=== PATIENT | female | born 1975 | race Hispanic/Latino ===

== ENCOUNTER 2022-05-29 23:21 | Inpatient (IN) | payer OTHER ==
[~2022-05-29] VITALS: Ht 160 cm; Wt 86.2 kg
[2022-05-30] VITALS (8 sets, daily range): BP systolic 124–133; BP diastolic 61–78
[2022-05-30] MEDS ORDERED: ONDANSETRON HCL INJ 2MG/ML 2ML 2 MG/ML VIAL IV STA (00:25)
[2022-05-30] MEDS ORDERED: KETOROLAC TROMETHAMINE 30 MG/ML VIAL IV STA (00:25)
[2022-05-30 00:37] LABS: BASOPHILS % 0.2 % (0.0-1.0); EOSINOPHILS % 0.2 % (0.0-6.0); HEMATOCRIT 38.6 % (34.2-44.1); HEMOGLOBIN 11.3 g/dL (12.0-16.0); LYMPHOCYTES # (AUTO) 0.3 (1.0-3.2); LYMPHOCYTES % 2.6 % (18.0-39.1); MEAN CORPUSCULAR HEMOGLOBIN 26.5 pg (28-32); MEAN CORPUSCULAR HGB CONC 29.3 g/dL (31-35); MEAN CORPUSCULAR VOLUME 90.6 fL (81-99); MONOCYTES # (AUTO) 0.1 (0.2-0.8); MONOCYTES % 0.6 % (4.4-11.3); NEUTROPHILS # (AUTO) 11.1 (2.1-6.9); NEUTROPHILS % 96.1 % (38.7-80.0); PLATELET COUNT 186 x10e3/uL (140-360); RED BLOOD COUNT 4.26 x10e6/uL (3.6-5.1)
[2022-05-30] MEDS ORDERED: ONDANSETRON HCL INJ 2MG/ML 2ML 2 MG/ML VIAL ONE ×3 (00:42→13:08)
[2022-05-30] MEDS ORDERED: KETOROLAC TROMETHAMINE 30 MG/ML VIAL ONE (00:42)
[2022-05-30 00:55] LABS: ALBUMIN 3.9 g/dL (3.5-5.0); ALBUMIN/GLOBULIN RATIO 1.1 (0.8-2.0); ANION GAP 13.5 mmol/L (8-16); CALCIUM 9.1 mg/dL (8.4-10.2); CREATININE, SERUM 1.1 mg/dL (0.57-1.11); POTASSIUM 3.5 mmol/L (3.5-5.1)
[2022-05-30 01:06] LABS: CLARITY,URINE CLOUDY (CLEAR); COLOR,URINE STRAW (YELLOW)
[2022-05-30 01:07] LABS: BACTERIA,URINE MANY /HPF; EPITHELIAL CELLS,URINE FEW /LPF; KETONES,URINE NEGATIVE (NEGATIVE); LEUKOCYTE ESTERASE ,URINE TRACE (NEGATIVE); NITRITE,URINE NEGATIVE (NEGATIVE); PROTEIN,URINE DIPSTICK NEGATIVE (NEGATIVE); RBC,URINE >50 /HPF (0-5); URINE UROBILINOGEN 0.2 mg/dL (0.2 - 1)
[2022-05-30] MEDS ORDERED: HYDROMORPHONE 1MG/1ML INJ IV STA (01:38)
[2022-05-30] MEDS ORDERED: ONDANSETRON HCL INJ 2MG/ML 2ML 2 MG/ML VIAL IV PRN (02:15)
[2022-05-30] MEDS ORDERED: HYDROMORPHONE 1MG/1ML INJ IV PRN (02:15)
[2022-05-30] MEDS: MEROPENEM 1 GM in SODIUM CHLORIDE 0.9% 100 ML IV SCH ×2 (02:20→14:49)
[2022-05-30] MEDS ORDERED: AMLODIPINE BES2.5 MG PO (03:53)
[2022-05-30] MEDS ORDERED: INFLUENZA VIRUS VAC SPLIT INJ 0.5 ML SYR IM SCH (04:11)
[2022-05-30] MEDS ORDERED: IOPAMIDOL 370 MG/ML 100 ML INFUS..BTL INJ ONE (09:45)
[2022-05-30] MEDS ORDERED: ACETAMINOPHEN 1000 MG/100 ML IV PRN (09:45)
[2022-05-30] MEDS ORDERED: LIDOCAINE HCL 2% LOCAL INJ 5 ML SDV VIAL INJ ONE (12:33)
[2022-05-30] MEDS ORDERED: DEXAMETHASONE SOD PHOS INJ 4 MG/ML SDV ONE (12:33)
[2022-05-30] MEDS ORDERED: GLYCOPYRROLATE INJ 0.2 MG/ML VIAL ONE (12:33)
[2022-05-30] MEDS ORDERED: PROPOFOL IV EMULSION 10 MG/ML 20 ML VIAL ONE ×2 (12:33→13:08)
[2022-05-30] MEDS ORDERED: POVIDONE IODINE 0.05% 0.05 % ML PO ONE ×2 (12:33→13:08)
[2022-05-30] MEDS ORDERED: MIDAZOLAM HCL 2 MG/2 ML VIAL ONE ×2 (12:42→13:30)
[2022-05-30] MEDS ORDERED: FENTANYL CITRATE/PF 100MCG/2 ML INJ ONE ×2 (12:42→13:30)
[2022-05-30] MEDS ORDERED: SEVOFLURANE INHAL SOLN 250 ML PEN BTL ONE (13:08)
[2022-05-30] MEDS ORDERED: METOCLOPRAMIDE HCL 10 MG/2ML VIAL ONE (13:08)
[2022-05-30] MEDS: TRAMADOL HCL 50 MG TAB PO PRN (20:48)
[2022-05-31] VITALS (8 sets, daily range): BP systolic 107–131; BP diastolic 56–71
[2022-05-31] MEDS: MEROPENEM 1 GM in SODIUM CHLORIDE 0.9% 100 ML IV SCH ×2 (03:34→14:52)
[2022-05-31 06:02] LABS: BASOPHILS % 0.3 % (0.0-1.0); EOSINOPHILS # (AUTO) 0.2 (0.0-0.4); EOSINOPHILS % 1.7 % (0.0-6.0); HEMATOCRIT 34.6 % (34.2-44.1); LYMPHOCYTES # (AUTO) 1.2 (1.0-3.2); LYMPHOCYTES % 9.2 % (18.0-39.1); MEAN CORPUSCULAR HEMOGLOBIN 26.3 pg (28-32); MEAN CORPUSCULAR HGB CONC 28.9 g/dL (31-35); MEAN CORPUSCULAR VOLUME 91.1 fL (81-99); NEUTROPHILS # (AUTO) 10.1 (2.1-6.9); NEUTROPHILS % 80.1 % (38.7-80.0); PLATELET COUNT 148 x10e3/uL (140-360); RED CELL DISTRIBUTION WIDTH 15.6 % (11.7-14.4)
[2022-05-31 06:27] LABS: ANION GAP 11.5 mmol/L (8-16); CALCIUM 8.2 mg/dL (8.4-10.2); CREATININE, SERUM 0.71 mg/dL (0.57-1.11); POTASSIUM 3.5 mmol/L (3.5-5.1)
[2022-05-31] MEDS: TRAMADOL HCL 50 MG TAB PO PRN (07:47)
[2022-05-31] MEDS: PHENAZOPYRIDINE HCL 100 MG TAB PO PRN ×2 (11:03→20:04)
[2022-05-31] MEDS: AMLODIPINE BESYLATE 5 MG TAB PO SCH (11:03)
[2022-05-31] MEDS ORDERED: ACETAMINOPHEN 325 MG TAB PO PRN (11:15)
[2022-05-31] MEDS ORDERED: SODIUM CHLORIDE 0.9% 250ML 250 ML ONE (15:05)
[2022-06-01] VITALS (8 sets, daily range): BP systolic 126–163; BP diastolic 68–95
[2022-06-01] MEDS: MEROPENEM 1 GM in SODIUM CHLORIDE 0.9% 100 ML IV SCH ×2 (03:38→14:36)
[2022-06-01 06:07] LABS: BASOPHILS % 0.5 % (0.0-1.0); EOSINOPHILS # (AUTO) 0.2 (0.0-0.4); EOSINOPHILS % 2.3 % (0.0-6.0); HEMATOCRIT 31.3 % (34.2-44.1); HEMOGLOBIN 10.1 g/dL (12.0-16.0); LYMPHOCYTES # (AUTO) 1.5 (1.0-3.2); MEAN CORPUSCULAR HEMOGLOBIN 27.7 pg (28-32); MEAN CORPUSCULAR HGB CONC 32.3 g/dL (31-35); MEAN CORPUSCULAR VOLUME 85.8 fL (81-99); MONOCYTES # (AUTO) 0.7 (0.2-0.8); MONOCYTES % 7.6 % (4.4-11.3); NEUTROPHILS # (AUTO) 6.3 (2.1-6.9); PLATELET COUNT 163 x10e3/uL (140-360); RED BLOOD COUNT 3.65 x10e6/uL (3.6-5.1); RED CELL DISTRIBUTION WIDTH 15.4 % (11.7-14.4)
[2022-06-01] MEDS ORDERED: ONDANSETRON HCL 4 MG ORAL DISINTEGRATING TAB PO PRN (07:45)
[2022-06-01] MEDS: AMLODIPINE BESYLATE 5 MG TAB PO SCH (09:47)
[2022-06-01] MEDS: PHENAZOPYRIDINE HCL 100 MG TAB PO PRN ×2 (09:49→15:47)
[2022-06-02] VITALS (8 sets, daily range): BP systolic 127–168; BP diastolic 70–90
[2022-06-02] MEDS: MEROPENEM 1 GM in SODIUM CHLORIDE 0.9% 100 ML IV SCH ×2 (02:10→13:50)
[2022-06-02] MEDS: TRAMADOL HCL 50 MG TAB PO PRN (09:22)
[2022-06-02] MEDS: AMLODIPINE BESYLATE 5 MG TAB PO SCH (09:23)
[2022-06-02] MEDS: PHENAZOPYRIDINE HCL 100 MG TAB PO PRN (09:25)
[2022-06-02] MEDS ORDERED: ONDANSETRON HCL INJ 2MG/ML 2ML 2 MG/ML VIAL IV PRN (14:45)
[2022-06-02] MEDS: CIPROFLOXACIN 500 MG TAB PO SCH ×2 (17:00→17:10)
[2022-06-03] VITALS: BP 130/65
[2022-06-03] MEDS: MEROPENEM 1 GM in SODIUM CHLORIDE 0.9% 100 ML IV SCH ×2 (02:30→14:46)
[2022-06-03 04:00] VITALS: BP 131/78
[2022-06-03 06:00] LABS: BASOPHILS # (AUTO) 0.1 (0.0-0.1); BASOPHILS % 0.9 % (0.0-1.0); EOSINOPHILS # (AUTO) 0.2 (0.0-0.4); EOSINOPHILS % 2.4 % (0.0-6.0); HEMOGLOBIN 10.4 g/dL (12.0-16.0); LYMPHOCYTES # (AUTO) 1.9 (1.0-3.2); LYMPHOCYTES % 22.7 % (18.0-39.1); MEAN CORPUSCULAR HEMOGLOBIN 26.5 pg (28-32); MEAN CORPUSCULAR HGB CONC 31.5 g/dL (31-35); MONOCYTES # (AUTO) 0.5 (0.2-0.8); MONOCYTES % 6.5 % (4.4-11.3); NEUTROPHILS # (AUTO) 5.5 (2.1-6.9); NEUTROPHILS % 66.9 % (38.7-80.0); PLATELET COUNT 229 x10e3/uL (140-360); RED BLOOD COUNT 3.93 x10e6/uL (3.6-5.1); RED CELL DISTRIBUTION WIDTH 14.6 % (11.7-14.4)
[2022-06-03 06:26] LABS: CALCIUM 8.8 mg/dL (8.4-10.2); CREATININE, SERUM 0.6 mg/dL (0.57-1.11)
[2022-06-03] MEDS: AMLODIPINE BESYLATE 5 MG TAB PO SCH (09:50)
[2022-06-03] MEDS: CIPROFLOXACIN 500 MG TAB PO SCH (09:50)
[2022-06-03 10:00] VITALS: BP 166/89
[2022-06-03 11:33] VITALS: BP 142/76
[2022-06-03 15:33] VITALS: BP 127/80
== END 2022-06-03 16:48 | disposition home or self-care (01) | DRG 661 ==
LOC: ER 23:30 → ERHOLD 05-30 02:05 → MED/SURG3 05-30 03:00
PROVIDERS: ADMIT Internal Medicine; ATTEND Internal Medicine
PROC: 0T788DZ Dilation of Bilateral Ureters with Intraluminal Device, Via Natural or Artificial Opening Endoscopic (ICD-10-PCS; principal; 2022-05-30 09:39)
DX: N13.2 Hydronephrosis with renal and ureteral calculous obstruction (principal); N39.0 Urinary tract infection, site not specified; B96.20 Unspecified Escherichia coli [E. coli] as the cause of diseases classified elsewhere; I10 Essential (primary) hypertension; R73.03 Prediabetes; D64.9 Anemia, unspecified; E66.9 Obesity, unspecified; Z68.33 Body mass index [BMI] 33.0-33.9, adult; Z20.822 Contact with and (suspected) exposure to COVID-19
CPT/HCPCS: 36415; 36569; 50590; 71045; 74018; 74176; 74420; 80048; 80053; 81001; 83970; 84550; 84702; 85025; 87086; 87186; 94799; 99252; 99284; C1758; C1874; J1100; J1170; J1885; J2001; J2185; J2250; J2405; J2765; J3010; J7050; Q0162; Q9967

== ENCOUNTER 2022-06-17 20:27 | Inpatient (IN) | payer OTHER ==
[~2022-06-17] VITALS: Ht 160 cm; Wt 86.2 kg
[~2022-06-17 20:27] MED LIST: AMLODIPINE BES2.5 MG PO
[2022-06-17 21:08] LABS: BASOPHILS % 0.4 % (0.0-1.0); EOSINOPHILS # (AUTO) 0.2 (0.0-0.4); EOSINOPHILS % 2.3 % (0.0-6.0); HEMATOCRIT 34.6 % (34.2-44.1); HEMOGLOBIN 10.8 g/dL (12.0-16.0); LYMPHOCYTES # (AUTO) 2.3 (1.0-3.2); MEAN CORPUSCULAR HEMOGLOBIN 26.6 pg (28-32); MEAN CORPUSCULAR HGB CONC 31.2 g/dL (31-35); MEAN CORPUSCULAR VOLUME 85.2 fL (81-99); MONOCYTES # (AUTO) 0.6 (0.2-0.8); MONOCYTES % 6.1 % (4.4-11.3); NEUTROPHILS # (AUTO) 7.2 (2.1-6.9); NEUTROPHILS % 68.9 % (38.7-80.0); PLATELET COUNT 231 x10e3/uL (140-360); RED BLOOD COUNT 4.06 x10e6/uL (3.6-5.1); RED CELL DISTRIBUTION WIDTH 15.8 % (11.7-14.4)
[2022-06-17 21:09] LABS: CLARITY,URINE CLEAR (CLEAR); COLOR,URINE YELLOW (YELLOW)
[2022-06-17 21:10] LABS: KETONES,URINE NEGATIVE (NEGATIVE); LEUKOCYTE ESTERASE ,URINE MODERATE (NEGATIVE); NITRITE,URINE NEGATIVE (NEGATIVE); PROTEIN,URINE DIPSTICK NEGATIVE (NEGATIVE); URINE UROBILINOGEN 0.2 mg/dL (0.2 - 1)
[2022-06-17] MEDS: SODIUM CHLORIDE 0.9% 1000ML 1,000 ML IV SCH (21:16)
[2022-06-17] MEDS: ONDANSETRON HCL INJ 2MG/ML 2ML 2 MG/ML VIAL IV PRN (21:16)
[2022-06-17] MEDS ORDERED: ERTAPENEM 1 GM VIAL ONE (21:22)
[2022-06-17 21:24] LABS: BACTERIA,URINE MODERATE /HPF; EPITHELIAL CELLS,URINE MODERATE /LPF; RBC,URINE 0-5 /HPF (0-5)
[2022-06-17 21:30] LABS: ALBUMIN 3.5 g/dL (3.5-5.0); ALBUMIN/GLOBULIN RATIO 0.9 (0.8-2.0); ANION GAP 14.9 mmol/L (8-16); CREATININE, SERUM 0.75 mg/dL (0.57-1.11); POTASSIUM 3.9 mmol/L (3.5-5.1)
[2022-06-17] MEDS: ACETAMINOPHEN 325 MG TAB PO PRN (21:30)
[2022-06-17] MEDS ORDERED: CLONIDINE HCL 0.1 MG TAB PO PRN (21:30)
[2022-06-17] MEDS ORDERED: ACETAMINOPHEN 325 MG TAB ONE (21:34)
[2022-06-17 22:30] VITALS: BP 139/72
[2022-06-18 00:39] VITALS: BP 139/72
[2022-06-18 04:00] VITALS: BP 115/65
[2022-06-18] MEDS: SODIUM CHLORIDE 0.9% 1000ML 1,000 ML IV SCH ×3 (04:43→20:14)
[2022-06-18 05:01] LABS: BASOPHILS % 0.5 % (0.0-1.0); EOSINOPHILS # (AUTO) 0.2 (0.0-0.4); HEMATOCRIT 33.4 % (34.2-44.1); HEMOGLOBIN 10.3 g/dL (12.0-16.0); LYMPHOCYTES % 24.9 % (18.0-39.1); MEAN CORPUSCULAR HEMOGLOBIN 26.8 pg (28-32); MEAN CORPUSCULAR HGB CONC 30.8 g/dL (31-35); MONOCYTES # (AUTO) 0.5 (0.2-0.8); MONOCYTES % 6.2 % (4.4-11.3); NEUTROPHILS # (AUTO) 5.3 (2.1-6.9); PLATELET COUNT 207 x10e3/uL (140-360); RED BLOOD COUNT 3.84 x10e6/uL (3.6-5.1); RED CELL DISTRIBUTION WIDTH 15.9 % (11.7-14.4)
[2022-06-18 05:25] LABS: ALBUMIN/GLOBULIN RATIO 0.9 (0.8-2.0); ANION GAP 12.5 mmol/L (8-16); CALCIUM 8.4 mg/dL (8.4-10.2); CREATININE, SERUM 0.68 mg/dL (0.57-1.11); POTASSIUM 4.5 mmol/L (3.5-5.1)
[2022-06-18 08:00] VITALS: BP 133/73
[2022-06-18 08:23] VITALS: BP 133/73
[2022-06-18] MEDS ORDERED: AMLODIPINE BESYLATE 5 MG TAB PO SCH (09:00)
[2022-06-18] MEDS ORDERED: LIDOCAINE HCL 2% LOCAL INJ 5 ML SDV VIAL INJ ONE (12:40)
[2022-06-18] MEDS ORDERED: DEXAMETHASONE SOD PHOS INJ 4 MG/ML SDV ONE (12:40)
[2022-06-18] MEDS ORDERED: PROPOFOL IV EMULSION 10 MG/ML 20 ML VIAL ONE (12:40)
[2022-06-18] MEDS ORDERED: POVIDONE IODINE 0.05% 0.05 % ML PO ONE (12:40)
[2022-06-18] MEDS ORDERED: SEVOFLURANE INHAL SOLN 250 ML PEN BTL ONE (12:40)
[2022-06-18] MEDS ORDERED: ONDANSETRON HCL INJ 2MG/ML 2ML 2 MG/ML VIAL ONE (12:40)
[2022-06-18] MEDS ORDERED: MIDAZOLAM HCL 2 MG/2 ML VIAL ONE (13:29)
[2022-06-18] MEDS ORDERED: FENTANYL CITRATE/PF 100MCG/2 ML INJ ONE (13:29)
[2022-06-18] MEDS: ACETAMINOPHEN/CODEINE 300MG - 30MG TAB PO PRN (14:30)
[2022-06-18] MEDS: ONDANSETRON HCL INJ 2MG/ML 2ML 2 MG/ML VIAL IV PRN (14:34)
[2022-06-18] MEDS ORDERED: KETOROLAC TROMETHAMINE 30 MG/ML VIAL IM PRN (14:45)
[2022-06-18 16:51] VITALS: BP 124/61
[2022-06-18] MEDS: DOCUSATE SODIUM 100 MG CAP PO SCH (17:57)
[2022-06-18 20:00] VITALS: BP 129/64
[2022-06-18] MEDS: AMLODIPINE BESYLATE 5 MG TAB PO SCH (20:12)
[2022-06-18] MEDS: ACETAMINOPHEN 325 MG TAB PO PRN (20:14)
[2022-06-19] VITALS (8 sets, daily range): BP systolic 111–144; BP diastolic 57–82
[2022-06-19] MEDS: SODIUM CHLORIDE 0.9% 1000ML 1,000 ML IV SCH ×3 (05:24→22:05)
[2022-06-19] MEDS: AMLODIPINE BESYLATE 5 MG TAB PO SCH (09:46)
[2022-06-19] MEDS: DOCUSATE SODIUM 100 MG CAP PO SCH ×2 (09:46→17:35)
[2022-06-20] VITALS (8 sets, daily range): BP systolic 120–152; BP diastolic 53–87
[2022-06-20 05:13] LABS: BASOPHILS % 0.4 % (0.0-1.0); EOSINOPHILS # (AUTO) 0.2 (0.0-0.4); EOSINOPHILS % 1.5 % (0.0-6.0); HEMATOCRIT 31.6 % (34.2-44.1); HEMOGLOBIN 9.7 g/dL (12.0-16.0); LYMPHOCYTES # (AUTO) 1.7 (1.0-3.2); LYMPHOCYTES % 16.8 % (18.0-39.1); MEAN CORPUSCULAR HEMOGLOBIN 26.2 pg (28-32); MEAN CORPUSCULAR HGB CONC 30.7 g/dL (31-35); MEAN CORPUSCULAR VOLUME 85.4 fL (81-99); MONOCYTES # (AUTO) 0.8 (0.2-0.8); MONOCYTES % 7.7 % (4.4-11.3); NEUTROPHILS # (AUTO) 7.3 (2.1-6.9); NEUTROPHILS % 73.3 % (38.7-80.0); PLATELET COUNT 187 x10e3/uL (140-360)
[2022-06-20 05:30] LABS: ANION GAP 9.9 mmol/L (8-16); CALCIUM 7.9 mg/dL (8.4-10.2); CREATININE, SERUM 0.63 mg/dL (0.57-1.11); POTASSIUM 3.9 mmol/L (3.5-5.1)
[2022-06-20] MEDS: SODIUM CHLORIDE 0.9% 1000ML 1,000 ML IV SCH ×3 (06:01→21:34)
[2022-06-20] MEDS: ACETAMINOPHEN 325 MG TAB PO PRN ×2 (06:08→21:34)
[2022-06-20] MEDS: DOCUSATE SODIUM 100 MG CAP PO SCH ×2 (08:14→17:17)
[2022-06-20] MEDS: AMLODIPINE BESYLATE 5 MG TAB PO SCH (08:14)
[2022-06-20] MEDS: ACETAMINOPHEN/CODEINE 300MG - 30MG TAB PO PRN (16:37)
[2022-06-20] MEDS: CIPROFLOXACIN 500 MG TAB PO SCH (17:17)
[2022-06-21 00:07] VITALS: BP 121/65
[2022-06-21 04:00] VITALS: BP 137/80
[2022-06-21] MEDS: SODIUM CHLORIDE 0.9% 1000ML 1,000 ML IV SCH ×2 (06:34→09:20)
[2022-06-21 09:00] VITALS: BP 137/80
[2022-06-21] MEDS: DOCUSATE SODIUM 100 MG CAP PO SCH (09:17)
[2022-06-21] MEDS: CIPROFLOXACIN 500 MG TAB PO SCH (09:17)
[2022-06-21] MEDS: AMLODIPINE BESYLATE 5 MG TAB PO SCH (09:19)
[2022-06-21 09:56] VITALS: BP 137/81
[2022-06-21] MEDS ORDERED: ONDANSETRON HCL 4 MG ORAL DISINTEGRATING TAB PO PRN (11:45)
[2022-06-21] MEDS: ACETAMINOPHEN/CODEINE 300MG - 30MG TAB PO PRN (12:13)
== END 2022-06-21 12:25 | disposition home or self-care (01) | DRG 660 ==
LOC: ER 20:32 → ERHOLD 20:50 → MED/SURG 06-18 00:08
PROVIDERS: ADMIT Internal Medicine; ATTEND Internal Medicine
PROC: 0TC08ZZ Extirpation of Matter from Right Kidney, Via Natural or Artificial Opening Endoscopic (ICD-10-PCS; 2022-06-18)
PROC: BT141ZZ Fluoroscopy of Kidneys, Ureters and Bladder using Low Osmolar Contrast (ICD-10-PCS; 2022-06-18)
PROC: 0TP98DZ Removal of Intraluminal Device from Ureter, Via Natural or Artificial Opening Endoscopic (ICD-10-PCS; principal; 2022-06-18 12:04)
PROC: 0T768DZ Dilation of Right Ureter with Intraluminal Device, Via Natural or Artificial Opening Endoscopic (ICD-10-PCS; 2022-06-18 12:04)
PROC: 0TC18ZZ Extirpation of Matter from Left Kidney, Via Natural or Artificial Opening Endoscopic (ICD-10-PCS; 2022-06-18 12:04)
DX: T83.592A Infection and inflammatory reaction due to indwelling ureteral stent, initial encounter (principal); N13.6 Pyonephrosis; Z16.12 Extended spectrum beta lactamase (ESBL) resistance; N81.10 Cystocele, unspecified; B96.20 Unspecified Escherichia coli [E. coli] as the cause of diseases classified elsewhere; Z96.0 Presence of urogenital implants; N81.6 Rectocele; E66.09 Other obesity due to excess calories; Z68.33 Body mass index [BMI] 33.0-33.9, adult; I10 Essential (primary) hypertension; K59.00 Constipation, unspecified; N13.5 Crossing vessel and stricture of ureter without hydronephrosis; Z20.822 Contact with and (suspected) exposure to COVID-19
CPT/HCPCS: 36415; 50590; 74018; 80048; 80053; 81001; 81025; 85025; 87086; 87186; 88112; 88300; 88305; 96361; 99284; C1769; C2617; J1100; J1335; J1885; J2001; J2185; J2250; J2405; J7030

== ENCOUNTER 2022-07-06 20:52 | Inpatient (IN) | payer OTHER ==
[~2022-07-06] VITALS: Ht 160 cm; Wt 86.2 kg
[~2022-07-06 20:52] MED LIST changes: +FENTANYL CITRATE/PF 100MCG/2 ML INJ ONE
[2022-07-06] MEDS ORDERED: SODIUM CHLORIDE 0.9% 1000ML 1,000 ML IV STA (21:21)
[2022-07-06 22:13] LABS: BASOPHILS # (AUTO) 0.1 (0.0-0.1); BASOPHILS % 0.5 % (0.0-1.0); EOSINOPHILS # (AUTO) 0.2 (0.0-0.4); EOSINOPHILS % 1.9 % (0.0-6.0); HEMATOCRIT 33.6 % (34.2-44.1); HEMOGLOBIN 10.3 g/dL (12.0-16.0); LYMPHOCYTES # (AUTO) 2.1 (1.0-3.2); LYMPHOCYTES % 18.9 % (18.0-39.1); MEAN CORPUSCULAR HEMOGLOBIN 26.2 pg (28-32); MEAN CORPUSCULAR HGB CONC 30.7 g/dL (31-35); MEAN CORPUSCULAR VOLUME 85.5 fL (81-99); MONOCYTES # (AUTO) 0.6 (0.2-0.8); MONOCYTES % 5.7 % (4.4-11.3); NEUTROPHILS % 72.7 % (38.7-80.0); PLATELET COUNT 256 x10e3/uL (140-360); RED BLOOD COUNT 3.93 x10e6/uL (3.6-5.1); RED CELL DISTRIBUTION WIDTH 15.4 % (11.7-14.4)
[2022-07-06 22:18] LABS: CLARITY,URINE SL CLOUDY (CLEAR); COLOR,URINE YELLOW (YELLOW); KETONES,URINE NEGATIVE (NEGATIVE); LEUKOCYTE ESTERASE ,URINE MODERATE (NEGATIVE); NITRITE,URINE NEGATIVE (NEGATIVE); PROTEIN,URINE DIPSTICK 1+ (NEGATIVE); URINE UROBILINOGEN 0.2 mg/dL (0.2 - 1)
[2022-07-06 22:22] LABS: BACTERIA,URINE FEW /HPF; EPITHELIAL CELLS,URINE MODERATE /LPF; WBC,URINE (MAN) 21-50 /HPF (0-5)
[2022-07-06] MEDS ORDERED: ONDANSETRON HCL INJ 2MG/ML 2ML 2 MG/ML VIAL IV PRN (22:30)
[2022-07-06 22:35] LABS: ALBUMIN 3.6 g/dL (3.5-5.0); ALBUMIN/GLOBULIN RATIO 1.1 (0.8-2.0); CALCIUM 9.3 mg/dL (8.4-10.2); CREATININE, SERUM 0.78 mg/dL (0.57-1.11)
[2022-07-07] VITALS (10 sets, daily range): BP systolic 111–137; BP diastolic 56–81
[2022-07-07] MEDS: SODIUM CHLORIDE 0.9% 1000ML 1,000 ML IV SCH ×4 (00:06→21:39)
[2022-07-07 05:58] LABS: BASOPHILS % 0.5 % (0.0-1.0); EOSINOPHILS # (AUTO) 0.2 (0.0-0.4); EOSINOPHILS % 2.7 % (0.0-6.0); HEMATOCRIT 32.5 % (34.2-44.1); HEMOGLOBIN 9.9 g/dL (12.0-16.0); LYMPHOCYTES # (AUTO) 1.7 (1.0-3.2); LYMPHOCYTES % 20.9 % (18.0-39.1); MEAN CORPUSCULAR HEMOGLOBIN 26.3 pg (28-32); MEAN CORPUSCULAR HGB CONC 30.5 g/dL (31-35); MEAN CORPUSCULAR VOLUME 86.2 fL (81-99); MONOCYTES # (AUTO) 0.4 (0.2-0.8); MONOCYTES % 5.3 % (4.4-11.3); NEUTROPHILS # (AUTO) 5.5 (2.1-6.9); NEUTROPHILS % 70.2 % (38.7-80.0); PLATELET COUNT 217 x10e3/uL (140-360); RED BLOOD COUNT 3.77 x10e6/uL (3.6-5.1); RED CELL DISTRIBUTION WIDTH 15.3 % (11.7-14.4)
[2022-07-07 06:32] LABS: ALBUMIN 3.2 g/dL (3.5-5.0); ALBUMIN/GLOBULIN RATIO 1.1 (0.8-2.0); ANION GAP 10.6 mmol/L (8-16); CALCIUM 8.3 mg/dL (8.4-10.2); CREATININE, SERUM 0.57 mg/dL (0.57-1.11); POTASSIUM 3.6 mmol/L (3.5-5.1)
[2022-07-07] MEDS: MEROPENEM 1 GM in SODIUM CHLORIDE 0.9% 100 ML IV SCH ×2 (08:51→21:09)
[2022-07-07] MEDS ORDERED: EPHEDRINE SULFATE INJ 50 MG/ML VIAL ONE (09:21)
[2022-07-07] MEDS ORDERED: LIDOCAINE HCL 2% LOCAL INJ 5 ML SDV VIAL INJ ONE (09:21)
[2022-07-07] MEDS ORDERED: DEXAMETHASONE SOD PHOS INJ 4 MG/ML SDV ONE (09:21)
[2022-07-07] MEDS ORDERED: ONDANSETRON HCL INJ 2MG/ML 2ML 2 MG/ML VIAL ONE (09:21)
[2022-07-07] MEDS ORDERED: SEVOFLURANE INHAL SOLN 250 ML PEN BTL ONE (09:21)
[2022-07-07] MEDS ORDERED: PROPOFOL IV EMULSION 10 MG/ML 20 ML VIAL ONE (09:21)
[2022-07-07] MEDS ORDERED: POVIDONE IODINE 0.05% 0.05 % ML PO ONE (09:21)
[2022-07-07] MEDS ORDERED: ONDANSETRON HCL INJ 2MG/ML 2ML 2 MG/ML VIAL IV PRN (11:30)
[2022-07-07] MEDS ORDERED: ACETAMINOPHEN 325 MG TAB PO PRN (11:30)
[2022-07-07] MEDS ORDERED: KETOROLAC TROMETHAMINE 30 MG/ML VIAL IM PRN (12:00)
[2022-07-07] MEDS ORDERED: IOPAMIDOL 610MG/1ML 300 MG/ML VIAL IV ONE (13:05)
[2022-07-07] MEDS ORDERED: PHENAZOPYRIDINE HCL 100 MG TAB PO PRN (13:45)
[2022-07-07] MEDS ORDERED: ACETAMINOPHEN 1000 MG/100 ML 100 ML IV ONE (13:45)
[2022-07-08] VITALS (9 sets, daily range): BP systolic 123–141; BP diastolic 71–83
[2022-07-08] MEDS: SODIUM CHLORIDE 0.9% 1000ML 1,000 ML IV SCH ×2 (05:19→11:25)
[2022-07-08 05:32] LABS: BASOPHILS % 0.3 % (0.0-1.0); EOSINOPHILS % 0.3 % (0.0-6.0); HEMATOCRIT 33.1 % (34.2-44.1); HEMOGLOBIN 10.3 g/dL (12.0-16.0); LYMPHOCYTES # (AUTO) 1.1 (1.0-3.2); LYMPHOCYTES % 11.5 % (18.0-39.1); MEAN CORPUSCULAR HEMOGLOBIN 26.4 pg (28-32); MEAN CORPUSCULAR HGB CONC 31.1 g/dL (31-35); MEAN CORPUSCULAR VOLUME 84.9 fL (81-99); MONOCYTES # (AUTO) 0.5 (0.2-0.8); MONOCYTES % 5.1 % (4.4-11.3); NEUTROPHILS # (AUTO) 8.1 (2.1-6.9); NEUTROPHILS % 82.4 % (38.7-80.0); RED CELL DISTRIBUTION WIDTH 15.2 % (11.7-14.4)
[2022-07-08 05:34] LABS: PLATELET COUNT 225 x10e3/uL (140-360)
[2022-07-08 05:44] LABS: ANION GAP 11.9 mmol/L (8-16); CALCIUM 8.6 mg/dL (8.4-10.2); CREATININE, SERUM 0.56 mg/dL (0.57-1.11); POTASSIUM 3.9 mmol/L (3.5-5.1)
[2022-07-08] MEDS ORDERED: FUROSEMIDE INJ 10 MG/ML 4 ML VIAL ONE (08:20)
[2022-07-08] MEDS ORDERED: NON-FORMULARY MEDICATION (Amlodipine Besylate 2.5 MG) PO SCH (09:00)
[2022-07-08] MEDS: AMLODIPINE BESYLATE 5 MG TAB PO SCH (09:10)
[2022-07-08] MEDS: MEROPENEM 1 GM in SODIUM CHLORIDE 0.9% 100 ML IV SCH ×2 (09:12→21:06)
[2022-07-08] MEDS: FLUCONAZOLE 200 MG/100 ML 100 ML IV SCH (11:24)
[2022-07-09] VITALS: BP 108/62
[2022-07-09 05:43] VITALS: BP 132/70
[2022-07-09 06:48] VITALS: BP 132/70
[2022-07-09 08:00] VITALS: BP 148/94
[2022-07-09] MEDS ORDERED: SODIUM CHLORIDE 0.9% 100 ML ONE (08:32)
[2022-07-09 08:52] VITALS: BP 148/94
[2022-07-09] MEDS: MEROPENEM 1 GM in SODIUM CHLORIDE 0.9% 100 ML IV SCH (09:27)
[2022-07-09] MEDS: AMLODIPINE BESYLATE 5 MG TAB PO SCH (09:29)
[2022-07-09] MEDS ORDERED: ONDANSETRON HCL 4 MG ORAL DISINTEGRATING TAB PO PRN (11:15)
[2022-07-09] MEDS: FLUCONAZOLE 200 MG/100 ML 100 ML IV SCH (11:55)
[2022-07-09 12:00] VITALS: BP 142/74
[2022-07-09] MEDS ORDERED: DIFLUCAN100 MG PO (17:29)
== END 2022-07-09 18:11 | disposition home or self-care (01) | DRG 694 ==
LOC: ER 20:57 → ERHOLD 22:30 → MED/SURG 23:26
PROVIDERS: ADMIT Internal Medicine; ATTEND Internal Medicine
PROC: 0TP98DZ Removal of Intraluminal Device from Ureter, Via Natural or Artificial Opening Endoscopic (ICD-10-PCS; 2022-07-07)
PROC: 0TP98DZ Removal of Intraluminal Device from Ureter, Via Natural or Artificial Opening Endoscopic (ICD-10-PCS; principal; 2022-07-07 12:54)
DX: N13.2 Hydronephrosis with renal and ureteral calculous obstruction (principal); N39.0 Urinary tract infection, site not specified; I10 Essential (primary) hypertension; Z88.0 Allergy status to penicillin; Z88.2 Allergy status to sulfonamides; E11.9 Type 2 diabetes mellitus without complications; E66.9 Obesity, unspecified; E83.51 Hypocalcemia; R80.9 Proteinuria, unspecified; Z20.822 Contact with and (suspected) exposure to COVID-19; Z68.33 Body mass index [BMI] 33.0-33.9, adult
CPT/HCPCS: 36415; 74176; 74420; 78708; 80048; 80053; 81001; 81025; 83690; 85025; 87086; 96361; 99284; A9562; C1766; C1769; J1100; J1450; J1940; J2001; J2185; J2405; J7030; J7050